=== PATIENT | female | born 1975 | race Two or more races ===

== ENCOUNTER 2017-05-23 13:36 | Emergency (ER) | payer OTHER ==
[~2017-05-23] VITALS: Ht 152.4 cm; Wt 75.0 kg
[~2017-05-23 13:36] MED LIST: DOCO200C3 PO; HYDR-3240 PO; IBUP-1222 PO; INHALER INH; ONDA4TAB7 PO
[2017-05-23 13:38] VITALS: BP 148/94
[2017-05-23] MEDS ORDERED: DEXAMETHASONE 4 MG TABLET ONE (14:07)
[2017-05-23] MEDS ORDERED: DEXAMETHASONE 4 MG/ML, 5ML ONE (14:10)
[2017-05-23] MEDS ORDERED: DEXAMETHASONE 4 MG/ML, 1ML ONE (14:14)
[2017-05-23 14:21] LABS: HEMATOCRIT 33.8 % (34.6-47.8); HEMOGLOBIN 10.9 g/dL (11.7-16.4)
[2017-05-23] MEDS ORDERED: DEXAMETHASONE 4 MG/ML, 1ML PO ONE (14:30)
== END 2017-05-23 15:19 | disposition home or self-care (01) ==
LOC: ED 14:30
DX: S80.862A Insect bite (nonvenomous), left lower leg, initial encounter (principal); S80.861A Insect bite (nonvenomous), right lower leg, initial encounter; S40.862A Insect bite (nonvenomous) of left upper arm, initial encounter; L03.116 Cellulitis of left lower limb; L03.115 Cellulitis of right lower limb; L03.114 Cellulitis of left upper limb; F17.200 Nicotine dependence, unspecified, uncomplicated; W57.XXXA Bitten or stung by nonvenomous insect and other nonvenomous arthropods, initial encounter; Y93.89 Activity, other specified; Y92.89 Other specified places as the place of occurrence of the external cause; Y99.9 Unspecified external cause status
CPT/HCPCS: 36415; 85025; 99283; J1100; Q0177

== ENCOUNTER 2017-11-25 12:40 | Emergency (ER) | payer OTHER ==
[~2017-11-25] VITALS: Ht 152.4 cm; Wt 80.0 kg
[2017-11-25 13:45] VITALS: BP 117/73
== END 2017-11-25 14:52 | disposition home or self-care (01) ==
LOC: ED 14:46
DX: O26.892 Other specified pregnancy related conditions, second trimester (principal); Z3A.19 19 weeks gestation of pregnancy; S30.1XXA Contusion of abdominal wall, initial encounter; X58.XXXA Exposure to other specified factors, initial encounter; Y93.89 Activity, other specified; Y92.89 Other specified places as the place of occurrence of the external cause; Y99.9 Unspecified external cause status
CPT/HCPCS: 76815; 99284